=== PATIENT | female | born 1975 | race Caucasian/White ===

== ENCOUNTER 2019-09-17 05:57 | Day surgery (SDC) | payer OTHER ==
[2019-09-14 11:57] VITALS: BP 127/56; PULSE 98; RESP 18; TEMP 97.8
[~2019-09-17] VITALS: Ht 167.6 cm; Wt 118.8 kg
[2019-09-17] VITALS (15 sets, daily range): BP systolic 115–159; BP diastolic 72–88; PULSE 75–86; RESP 15–19; TEMP 97.4–98.2
[2019-09-17] MEDS: CALDOLOR 800MG+NS 250ML 250 ML IV SCH ×2 (06:00→09:37)
[2019-09-17] MEDS: CEFAZOLIN 3GM /D5W 100ML 100 ML IV SCH ×2 (06:00→09:21)
[2019-09-17] MEDS ORDERED: CEFAZOLIN SODIUM 1 GM VIAL ONE (06:15)
[2019-09-17] MEDS: LACTATED RINGERS 1000ML 1,000 ML IV SCH ×2 (06:45→10:00)
[2019-09-17] MEDS ORDERED: STRONG IODINE SOLN 14ML BOTTLE ONE (08:18)
[2019-09-17] MEDS ORDERED: SUCCINYLCHOLINE CHLORIDE 20 MG/ML 10 ML VIAL ONE (09:18)
[2019-09-17] MEDS ORDERED: LIDOCAINE HCL MPF 1% 5ML VIAL ONE (09:18)
[2019-09-17] MEDS ORDERED: PROPOFOL 10 MG/ML 20ML VIAL IV ONE (09:19)
[2019-09-17] MEDS ORDERED: FENTANYL CITRATE PF 50 MCG/1 ML 2ML VIAL ONE (09:20)
--- NOTE | 2019-09-17 12:20 | NUR ---
Pt discharged home, tolerating fluids well, voiding well, ambulating well. Pt denies any severe pain, nausea or dizziness. Very minimal bleeding to ob-pad. Discharge instructions given, pt reports no further questions at this time.
== END 2019-09-17 12:20 | disposition home or self-care (01) ==
LOC: DAH 05:57
PROVIDERS: ATTEND Obstetrics & Gynecology
DX: R87.613 High grade squamous intraepithelial lesion on cytologic smear of cervix (HGSIL) (principal); Z11.59 Encounter for screening for other viral diseases; E11.9 Type 2 diabetes mellitus without complications; I10 Essential (primary) hypertension; E03.9 Hypothyroidism, unspecified; E66.9 Obesity, unspecified; Z79.899 Other long term (current) drug therapy; Z98.890 Other specified postprocedural states; Z68.41 Body mass index [BMI] 40.0-44.9, adult
CPT/HCPCS: 36415 ×2; 57520; 84703; 85025; 86850 ×2; 86900 ×2; 86901 ×2; A4213; A4215; A4221; A4222; A4223; A4351; A4663; A6260; J0330; J0690; J1741; J2704; J3010; J3490; J7030; J7120; U0003

== ENCOUNTER 2021-04-25 09:50 | Emergency (ER) | payer BC, OTHER ==
[~2021-04-25] VITALS: Ht 167.6 cm; Wt 102.1 kg
[~2021-04-25 09:50] MED LIST: AMLO-257 PO; LEVO1TBD PO; LISI20TA24 PO; THYR60TA PO
[2021-04-25 10:14] LABS: BASOPHILS % (AUTO) 0.6 % (0.0-5.0); EOSINOPHILS % (AUTO) 2.3 % (0.0-8.0); HEMATOCRIT 36.2 % (36-48); LYMPHOCYTES % (AUTO) 26.5 % (21.0-51.0); MEAN CORPUSCULAR HEMOGLOBIN 27.5 pg (27.0-33.0); MEAN CORPUSCULAR HGB CONC 31.2 g/dL (32.0-36.0); MEAN CORPUSCULAR VOLUME 88.1 fL (79-99); MONOCYTES % (AUTO) 8.4 % (3.0-13.0); PLATELET COUNT (AUTO) 218 K/uL (130-400); RED BLOOD CELL COUNT(AUTO) 4.11 MIL/uL (4.00-5.50); RED CELL DISTRIBUTION WIDTH 15.5 % (11.0-15.5); WHITE BLOOD COUNT (AUTO) 6.2 K/uL (4.8-10.8)
[2021-04-25 10:24] LABS: CREATININE 1.1 mg/dL (0.5-1.5); POTASSIUM 3.8 mmol/L (3.5-5.1)
[2021-04-25 10:28] LABS: ALBUMIN 3.5 g/dL (3.5-5.0); BILIRUBIN,TOTAL 0.5 mg/dL (0.2-1.0); TOTAL PROTEIN, SERUM 7.7 g/dL (6.0-8.3)
[2021-04-25] MEDS ORDERED: ACETAMINOPHEN 500 MG TABLET PO SCH (10:30)
[2021-04-25 12:32] VITALS: BP 108/74
== END 2021-04-25 12:38 | disposition home or self-care (01) ==
LOC: EDH 09:50
DX: N93.8 Other specified abnormal uterine and vaginal bleeding (principal); I10 Essential (primary) hypertension; Z98.890 Other specified postprocedural states; Z79.899 Other long term (current) drug therapy
CPT/HCPCS: 36415; 76856; 80053; 85025